=== PATIENT | female | born 1970 | race Two or more races ===

== ENCOUNTER → 2024-04-02 | Outpatient (CLI) | payer MEDICAID, SELFPAY ==
--- NOTE | 2024-04-02 | XR_ITS ---
Examination: Breast ultrasound, unilateral, right complete Date and time of exam: April 02, 2024 1211 hours INDICATIONS: Mammogram March 15, 2024 16 mm nodule 12:00 position right breast staining sensation in the right breast 2 months Technique: Real-time melgoza scale ultrasonographic imaging performed right breast including all 4 quadrants as well as nipple retroareolar and axillary region. Findings: 12:00 oval mass circumscribed 8 x 5 x 8 mm IMPRESSION: BI-RADS Category 3: Probably benign findings Recommend 1 additional 6 month right breast sonogram follow-up to document stability of 12:00 nodule described above
--- NOTE | 2024-04-02 | XR_ITS ---
Examination: Diagnostic digital mammography, unilateral, right Computer aided detection 3-D breast Tomosynthesis, unilateral Date and time of exam: April 02, 2024 1244 hours INDICATIONS: Mammogram March 15, 2024 16 mm nodule 12:00 position right breast Technique: Nonmagnified MLO, CC views of the right breast have been obtained, reconstructed from 3-D Tomosynthesis images. R2 computer aided detection program utilized for evaluation of suspicious masses and/or abnormal calcifications. 3-D Tomosynthesis images obtained. Findings: The breast is heterogeneously dense, which may obscure small masses 10 mm nodule is confirmed 12:00 position right breast Impression: BI-RADS category : Probably benign findings One additional 6 month right mammogram follow-up is needed to document stability of 12:00 nodule right breast
== END | disposition home or self-care (01) ==
PROVIDERS: PCP Nurse Practitioner Family; Referring Provider Nurse Practitioner Family; Visit Provider Nurse Practitioner Family
DX: R92.8 Other abnormal and inconclusive findings on diagnostic imaging of breast (principal); N63.10 Unspecified lump in the right breast, unspecified quadrant; N63.15 Unspecified lump in the right breast, overlapping quadrants
CPT/HCPCS: 76641; 77061; 77065; G0279

== ENCOUNTER 2024-10-17 21:45 | Emergency (ER) | payer MEDICAID, SELFPAY ==
[2024-10-17 21:48] VITALS: BMI 30.2
[2024-10-17 22:07] VITALS: BP 140/85; PULSE 68; RESP 18; TEMP 36.7; O2SAT 97
--- NOTE | 2024-10-17 22:59 | EDNOTE_ITS ---
ED Abdominal Pain RME/HPI General Chief Complaint: Abdominal Pain Stated complaint: UPPER ABD PAIN AND BURNING, NAUSEA, DIZZY, WEAK Arrival date/time: 10/17/24 21:45 RME / HPI RME / HPI narrative: Dr. Devlin?s Main ED Evaluation: 53yo female presents to the ED for a chief complaint of epigastric pain x 2 weeks. Patient states her pain radiates up to her chest and throat, reporting she has experienced similar symptoms in the past and that it's worsened over the last couple of days. Patient reports associated nausea and dizziness. She also complains of having decreased appetite due to her pain. Patient states she took ibuprofen at 1600 without any improvement of symptoms, so she came in for evaluation. Patient denies any vomiting, fever, chills, UTI symptoms or any other associated symptoms. Denies any previous abdominal surgeries. Related Data Previous Rx's ?Medication ?Instructions ?Recorded omeprazole 20 mg capsule,delayed 20 mg PO QDAY #30 cap s 10/18/24 release Allergies Allergy/AdvReac Type Severity Reaction Status Date / Time Penicillins Allergy Severe Rash Verified 10/17/24 21:47 Review of Systems Review of Systems Systems Reviewed: All systems reviewed, normal except as documented Past Medical History Past Medical History CARDIAC: Positive Hypercholesterolemia; Negative Cardiac Disorders or Congestive Heart Failure RESPIRATORY: Negative Chronic Obstructive Pulmonary Disease (COPD) or Asthma GASTROINTESTINAL: Positive Pancreatitis GENITOURINARY: Negative Renal Disease ENDOCRINE: Negative Diabetes Mellitus Type 1 or Diabetes Mellitus Type 2 HEMATOLOGIC: Negative Sickle Cell Disease Social History SMOKING STATUS: Never smoker SUBSTANCE USE: does not use ED Exam Narrative Physical exam: GENERAL APPEARANCE: alert and oriented x 4, well-developed, well-nourished, no acute distress VITALS: All vitals were reviewed and the pulse ox is 97% on room air, which is normal according to my interpretation. HEENT: Normocephalic, atraumatic; pupils equal, round, reactive to light; EOMI; mucous membranes pink, moist; oropharynx clear NECK: Supple LUNGS: CTABL; no wheezes, no rales, no rhonchi HEART: Regular rate, regular rhythm; normal S1, S2; no murmurs ABDOMEN: non distended; normal BS; soft, no tenderness, no guarding, no rebound; no masses, no organomegaly, no hernia BACK: no CVA tenderness EXTREMITIES: atraumatic; no edema NEUROLOGIC: awake; alert and oriented x4; cranial nerves II-XII grossly intact; no focal sensory or motor deficits PSYCHIATRIC: appropriate mood and affect SKIN: warm, dry, normal color; no rashes Course Course Course Narrative: CXR is ordered for determining the etiology of chest pain. Quality Measures none Orders Category Date Time Status Lead Java Programmer NOW Care 10/17/24 23:02 Active EKG (ED ONLY) *Do not use* NOW Care 10/17/24 23:02 Completed IV [Insert IV] NOW Care 10/17/24 23:27 Active EKG (ED Only) Stat Exams 10/17/24 23:02 Draft XR chest 1V portable Stat Exams 10/17/24 23:02 Completed B-Type Natriuretic Peptide Stat Lab 10/17/24 23:20 Completed CBC Stat Lab 10/17/24 23:20 Completed Comprehensive Metabolic Panel Stat Lab 10/17/24 23:20 Completed Lipase Stat Lab 10/17/24 23:20 Completed Magnesium Stat Lab 10/17/24 23:20 Completed Partial Thromboplastin Time Stat Lab 10/17/24 23:20 Completed Prothrombin Time with INR Stat Lab 10/17/24 23:20 Completed Troponin I Stat Lab 10/17/24 23:20 Completed Lidocaine 2% Viscous [Xylocaine 2% Viscous] Med 10/18/24 00:31 Discontinued 15 ml PO X1 ONE Morphine Inj Med 10/17/24 23:04 Discontinued 5 mg IVP X1 ONE Ondansetron Inj [Zofran Inj] Med 10/17/24 23:04 Discontinued 4 mg IVP X1 ONE Sodium Chloride 0.9% 1000 ml [Ns] 1,000 ml Med 10/17/24 23:04 Discontinued IV 999 mls/hr Sodium Chloride 0.9% 1000 ml [Ns] 1,000 ml Med 10/17/24 23:04 Discontinued IV 999 mls/hr mg Hyd/Al Hyd/Carole Susp [Maalox Susp] Med 10/18/24 00:31 Discontinued 30 ml PO X1 ONE Vital Signs Vital signs: Vital Signs Temperature 98.0 F 10/17/24 22:07 Pulse Rate 68 10/17/24 22:07 Respiratory Rate 18 10/17/24 22:07 Blood Pressure 140/85 H 10/17/24 22:07 Pulse Oximetry (%) 97 10/17/24 22:07 Oxygen Delivery Method Room Air 10/17/24 22:07 Abdominal Pain MDM MDM Narrative MDM Narrative:: Scribe Attestation: 10/17/24 Cynthia Lopez am scribing for and in the presence of Dr. Devlin. Patient data External records reviewed:: [facility] previous records (Per chart review, patient was admitted here on 03/18/20 for abdominal pain.) Clinical information provided by:: patient Social determinants that could affect healthcare access:: none Patient has the following chronic illnesses:: HLD How is presenting disease/condition affected by chronic disease/condition?: uneffected by Evaluation data The following diagnostics were reviewed and interpreted by me:: lab results, radiology exam(s) and EKG tracing(s) Lab and/or radiology exams considered but not ordered:: none Interpretation Summary: CBC normal, PT/INR/PTT normal, Glucose 181, BNP normal, Troponin normal, Lipase normal. EKG done at 2317, borderline bradycardia, rate of 56, mild IVCD, diffuse low voltage, incomplete RBBB, no STEMI, according to my interpretation. [place] [facility] Report Signed Patient: SEBASTIÁN BRITT. Record#: [id number] Birthdate: 1970 Age/Sex: 53 / F Location: [facility] Attending Dr: Ordering Physician: Corrie Devlin MD Date of Service: 10/17/24 Procedure(s): XR chest 1V portable Accession Number(s): [id number] cc: Dom Suresh MD; Sandra Mccallum STATION SUPERVISOR; Corrie Devlin MD~ Examination: AP chest single view TECHNIQUE: AP portable upright chest single view Date and time: October 17, 2024 1126 hours INDICATIONS: Chest pain today. FINDINGS: Reduced inspiratory effort Normal heart size No pneumonia or pulmonary edema IMPRESSION: No active disease Dictated By: Dom Suresh MD Signed By: <Electronically signed by Dom Suresh MD in OV> 10/17/24 0845 Medications / Prescriptions Medications or Prescriptions considered but not ordered:: none Medication administrations:: Medication Administration History Discontinued Medications Al Hydrox/Mg Hydrox/Simethicone (Mg Hyd/Al Hyd/Carole (Maalox Reg) Susp 30 Ml Udc) 30 ml PO X1 ONE Stop: 10/18/24 00:32 Last Admin: 10/18/24 00:48 Dose: 30 ml Documented By: CVL Sodium Chloride (Ns) 1,000 mls @ 999 mls/hr IV .Q1H1M ONE Stop: 10/18/24 00:04 Last Infusion: 10/18/24 00:44 Dose: Infused Documented By: Admin: 10/17/24 23:37 Dose: 999 mls/hr Documented By: CVL Sodium Chloride (Ns) 1,000 mls @ 999 mls/hr IV .Q1H1M ONE Stop: 10/18/24 00:04 Last Admin: 10/18/24 00:47 Dose: 999 mls/hr Documented By: CVL Lidocaine HCl (Lidocaine Viscous 2% 15 Ml Udc) 15 ml PO X1 ONE Stop: 10/18/24 00:32 Last Admin: 10/18/24 00:48 Dose: 15 ml Documented By: CVL Morphine Sulfate (Morphine Sulf Inj 10 Mg/Ml Vial) 5 mg IVP X1 ONE Stop: 10/17/24 23:05 Last Admin: 10/17/24 23:38 Dose: 5 mg Documented By: CVL Ondansetron HCl (Ondansetron Inj 2 Mg/Ml Inj 2 Ml) 4 mg IVP X1 ONE Stop: 10/17/24 23:05 Last Admin: 10/17/24 23:37 Dose: 4 mg Documented By: CVL see above Consultations Consultation(s) initiated? (list below): No Diagnosis Differential diagnosis abdominal pain: diverticulitis, pancreatitis and other (gastritis) Most likely diagnosis given after review of the tests above:: see clinical impression below Admission Indicated Admission indicated?: not indicated Admission Request Was there a request for admission?: No Disposition Plan Disposition Plan: Discharge Discharge Attestation Discharge Attestation: The patient and all family members were given an opportunity to ask questions and understood the discharge instructions. Discharge instructions specifically effects, indications for sooner follow up or return to the emergency department, and the expected course of current diagnosis. Patient condition: Stable Discharge Plan Plan Patient Disposition: HOME (Self Care) Prescriptions/Referrals Prescriptions/Med Rec: New omeprazole 20 mg capsule,delayed release(DR/EC) 20 mg PO QDAY Qty: 30 0RF Referrals: Mccallum,Sandra, STATION SUPERVISOR [Primary Care Provider] - In 1 week Problem List Clinical Impression: Gastritis Patient/Caregiver Discharge Instructions Education Materials: ED Gastritis (Adult) Print Language: Cymraes Stand Alone Forms: Rosalie Award Info., Patient Portal Info Letter
--- NOTE | 2024-10-17 23:02 | EKG_ITS ---
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1970 Requested By: Corrie Madrid Order Number: [id number] Reading MD: Corrie Madrid Measurements Intervals [place] Rate: 56 P: 34 NC: 193 QRS: -12 QRSD: 114 T: 18 QT: 402 QTc: 390 Interpretive Statements SINUS BRADYCARDIA LOW QRS VOLTAGE IN PRECORDIAL LEADS [QRS DEFLECTION < 1.0 mV IN CHEST LEADS] INCOMPLETE RIGHT BUNDLE BRANCH BLOCK [90+ ms QRS DURATION, TERMINAL R IN V1/V2, 40+ ms S IN I/aVL/V4/V5/V6] POSSIBLE ANTERIOR MYOCARDIAL INFARCTION , PROBABLY OLD [30 ms Q WAVE IN V3/V4, OR R < 0.2 mV IN V4] Compared to ECG 10/31/2023 02:27:13 Myocardial infarct finding now present Sinus rhythm no longer present /store/S0/[id number]/ecg/[id number].pdf
--- NOTE | 2024-10-17 23:02 | XR_ITS ---
Examination: AP chest single view TECHNIQUE: AP portable upright chest single view Date and time: October 17, 2024 1126 hours INDICATIONS: Chest pain today. FINDINGS: Reduced inspiratory effort Normal heart size No pneumonia or pulmonary edema IMPRESSION: No active disease
[2024-10-17] MEDS: SODIUM CHLORIDE 0.9% 1000 ML 1,000 ML 999 ML IV (23:37)
[2024-10-17] MEDS: ONDANSETRON INJ 2 MG/ML INJ 2 ML 4 MG IVP (23:37)
[2024-10-17] MEDS: MORPHINE SULF INJ 10 MG/ML VIAL 5 MG IVP (23:38)
[2024-10-17 23:42] LABS: Basophils # (Auto) 0.1 Thou/mm3 (0.0-0.2); Basophils % (Auto) 1 % (0-2.5); Eosinophils # (Auto) 0.2 Thou/mm3 (0.0-0.5); Eosinophils % (Auto) 2 % (0-10); Hematocrit 39.8 % (36.0-46.0); Hemoglobin 13.6 g/dL (12.0-16.0); Immature Granulocytes % (Auto) 0 % (0-0); Immature Granulocytes Auto 0.03 Thou/mm3 (0.00-0.00); Lymphocytes # (Auto) 2.4 Thou/mm3 (1.0-4.8); Lymphocytes % (Auto) 23 % (10-50); Mean Corpuscular HGB Conc 34.2 g/dl (31.0-37.0); Mean Corpuscular Hemoglobin 27.7 pg (25.0-35.0); Mean Corpuscular Volume 81 fL (80-100); Monocytes # (Auto) 0.6 Thou/mm3 (0.0-0.8); Monocytes % (Auto) 6 % (0-12); Neutrophils # (Auto) 7.1 Thou/mm3 (1.8-7.7); Neutrophils % (Auto) 68 % (37-80); Nucleated Red Blood Cell % 0 /100 WBC (0); Platelet Count 226 Thou/mm3 (140-440); Red Blood Count 4.91 Miln/mm3 (4.00-5.20); White Blood Count 10.4 Thou/mm3 (3.6-11.0)
[2024-10-17 23:51] LABS: Partial Thromboplastin Time 24.1 Seconds (22.0-36.0); Prothrombin Time 10.6 Seconds (9.0-12.2)
[2024-10-17 23:59] LABS: Alanine Aminotransferase 23 U/L (10-49); Albumin, Serum 4.3 gm/dL (3.5-5.0); Albumin/Globulin Ratio 1.9 (1.2-2.2); Alkaline Phosphatase 66 U/L (46-116); Anion Gap 11 (7-16); Aspartate Amino Transferase 17 U/L (0-34); BUN/Creatinine Ratio 20 Ratio (12-20); Bilirubin,Total 0.5 mg/dL (0.3-1.2); Blood Urea Nitrogen 14 mg/dL (9-23); Calcium 9.1 mg/dL (8.3-10.6); Calcium (Corrected) 9.1 mg/dL (8.5-10.1); Carbon Dioxide 23.7 mMol/L (20.0-31.0); Chloride 105 mMol/L (98-107); Creatinine (Component) 0.7 mg/dL (0.6-1.3); Estimated Creatinine Clearance 70.4 mL/min (>60); Globulin 2.3 gm/dL (2.3-3.5); Glucose 181 mg/dL (74-106); Lipase 36 U/L (12-53); Osmolality,Calculated 284 (275-295); Potassium 4.1 mMol/L (3.4-5.1); Sodium 140 mMol/L (136-145); Total Protein 6.6 gm/dL (5.7-8.2); Troponin I < 0.002 ng/mL (0.0-0.045); eGFR > 60 See Note
[2024-10-18] LABS: B-Type Natriuretic Peptide < 20 pg/mL (0-100)
[2024-10-18] MEDS: SODIUM CHLORIDE 0.9% 1000 ML 1,000 ML 999 ML IV (00:47)
[2024-10-18] MEDS: MG HYD/AL HYD/SIME (Maalox Reg) SUSP 30 ML UDC PO (00:48)
[2024-10-18] MEDS: LIDOCAINE VISCOUS 2% 15 ML UDC PO (00:48)
[2024-10-18 01:46] VITALS: PULSE 63; RESP 18; O2SAT 97
== END 2024-10-18 01:47 | disposition home or self-care (01) ==
PROVIDERS: Emergency Provider Emergency Medicine; PCP Nurse Practitioner Family
DX: K29.70 Gastritis, unspecified, without bleeding (principal); I45.10 Unspecified right bundle-branch block; R00.1 Bradycardia, unspecified; R42 Dizziness and giddiness
CPT/HCPCS: 36415; 71045; 80053; 83690; 83735; 83880; 84484; 85025; 85610; 85730; 93005; 96361; 96374; 96375; 99284; J2270; J2405; J3490; J7030; A9270

== ENCOUNTER 2024-10-18 21:40 | Emergency (ER) | payer MEDICAID, SELFPAY ==
[2024-10-18 21:41] VITALS: BMI 29.4
[2024-10-18 21:53] VITALS: BP 136/87; PULSE 65; RESP 20; TEMP 37.3; O2SAT 97
--- NOTE | 2024-10-18 22:07 | EDRME_ITS ---
Rapid Medical Screening Exam E Arrival date/time: 10/18/24 21:40 53F with history of pancreatitis presents to ED with 2 weeks of upper ab pain and N/V. 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 Chief Complaint: Abdominal Pain Vital signs: Vital Signs Temperature 99.2 F 10/18/24 21:53 Pulse Rate 65 10/18/24 21:53 Respiratory Rate 20 10/18/24 21:53 Blood Pressure 136/87 H 10/18/24 21:53 Pulse Oximetry (%) 97 10/18/24 21:53 Oxygen Delivery Method Room Air 10/18/24 21:53
--- NOTE | 2024-10-18 22:07 | XR_ITS ---
Examination: CT abdomen with intravenous contrast CT pelvis with intravenous contrast 2-D coronal reconstructions 2-D sagittal reconstructions Date and time of exam:October 19, 2024 0229 hours INDICATIONS: Urinary retention abdominal pain today COMPARISON: March 18, 2020. CTDI: vol (mGy) 9.9 DLP: (mGycm) 556 Technique: Multiple axial sections of the abdomen and pelvis have been obtained. 64 slice high-resolution scanner used. 3 mm axial sections have been obtained, post intravenous injection 60 cc Isovue 370 2-D sagittal, coronal reconstructions obtained. Low dose protocols were performed. One or more of the following dose reduction techniques were used; automated exposure control, adjustment of the mA and/or KV according to patient size, use of iterative reconstruction technique. Findings: Minimal bilateral pleural disease Atelectasis in the lower lung zones Fatty infiltration throughout the liver Thickening of the gastric mucosa and marked thickening and edema of the duodenum Contracted gallbladder with gallstones Enlarged common bile duct 4 mm with smaller areas of radiodensity The pancreatic head appears mildly prominent axial image 92, AP dimension 33 mm No hydronephrosis No bowel obstruction Normal appendix No diverticulitis Mild free fluid in the pelvis Urinary bladder intact IMPRESSION: Gastritis active peptic disease duodenum pattern Cholelithiasis Extrahepatic biliary tract dilatation with possible stones in the common bile duct, prominent pancreatic head, recommend MRCP follow-up Free fluid in the pelvis, recommend pelvic sonography follow-up
--- NOTE | 2024-10-18 22:07 | XR_ITS ---
Examination: Abdomen sonogram, Limited Date and time of exam: October 18, 2024 at 11:21 PM INDICATIONS: Epigastric pain beginning 5 days ago Technique: Real-time melgoza scale transabdominal sonographic images of the upper abdomen obtained. Findings: Contracted gallbladder No gallstones Gallbladder wall 0.4 cm Common bile duct 0.7 cm Pancreatic head 3.0 cm Liver 14.2 cm with mass structure medial to the gallbladder 2.4 x 2.8 x 3.2 cm Normal hepatopedal portal venous flow Patent IVC IMPRESSION: Repeat the gallbladder portion of the study with fasting Mildly dilated common bile duct Recommend CT abdomen and pelvis post intravenous contrast follow-up to exclude mass in the liver versus pancreas
[2024-10-18 23:02] LABS: Lactate (Lactic Acid) 0.9 mMol/L (0.4-2.0)
[2024-10-18 23:07] LABS: Basophils % (Auto) 0 % (0-2.5); Eosinophils # (Auto) 0.2 Thou/mm3 (0.0-0.5); Eosinophils % (Auto) 2 % (0-10); Hematocrit 40.1 % (36.0-46.0); Hemoglobin 13.4 g/dL (12.0-16.0); Immature Granulocytes % (Auto) 0 % (0-0); Immature Granulocytes Auto 0.02 Thou/mm3 (0.00-0.00); Lymphocytes % (Auto) 22 % (10-50); Mean Corpuscular HGB Conc 33.4 g/dl (31.0-37.0); Mean Corpuscular Volume 84 fL (80-100); Monocytes # (Auto) 0.6 Thou/mm3 (0.0-0.8); Monocytes % (Auto) 6 % (0-12); Neutrophils # (Auto) 6.5 Thou/mm3 (1.8-7.7); Neutrophils % (Auto) 70 % (37-80); Nucleated Red Blood Cell % 0 /100 WBC (0); Platelet Count 208 Thou/mm3 (140-440); RDW Standard Deviation 43.8 fL (36.4-46.3); Red Blood Count 4.79 Miln/mm3 (4.00-5.20); White Blood Count 9.3 Thou/mm3 (3.6-11.0)
[2024-10-18 23:46] LABS: Alanine Aminotransferase 32 U/L (10-49); Albumin, Serum 4.4 gm/dL (3.5-5.0); Albumin/Globulin Ratio 2.1 (1.2-2.2); Alkaline Phosphatase 62 U/L (46-116); Anion Gap 11 (7-16); Aspartate Amino Transferase 21 U/L (0-34); BUN/Creatinine Ratio 16 Ratio (12-20); Bilirubin,Total 0.6 mg/dL (0.3-1.2); Blood Urea Nitrogen 11 mg/dL (9-23); Calcium 9.4 mg/dL (8.3-10.6); Calcium (Corrected) 9.4 mg/dL (8.5-10.1); Chloride 102 mMol/L (98-107); Creatinine (Component) 0.7 mg/dL (0.6-1.3); Estimated Creatinine Clearance 69.4 mL/min (>60); Globulin 2.1 gm/dL (2.3-3.5); Glucose 203 mg/dL (74-106); Lipase 32 U/L (12-53); Osmolality,Calculated 275 (275-295); Potassium 3.7 mMol/L (3.4-5.1); Procalcitonin 0.07 ng/ml (0.0-0.49); Sodium 135 mMol/L (136-145); Total Protein 6.5 gm/dL (5.7-8.2); eGFR > 60 See Note
[2024-10-19] VITALS (8 sets, daily range): BP systolic 100–132; BP diastolic 62–77; PULSE 56–68; RESP 16–18; TEMP 36.6–36.9; O2SAT 93–98
--- NOTE | 2024-10-19 | XR_ITS ---
MRI abdomen, without contrast. MRCP Date and time of exam: October 19, 2024 1125 hrs. Indications: Abdominal pain nausea vomiting this week Technique: Multiple axial and coronal images of the abdomen have been obtained with the Siemens 1.5T MRI scanner. Images obtained included T1 weighted transverse images, T2-weighted transverse images, T2-weighted transverse images fat-suppressed, T2 weighted haste fat suppressed transverse images, T1 weighted images, in and out of phase images, T2-weighted coronal images, breath hold, T2 weighted haze coronal images as well as T2 weighted coronal thick slab images, MRCP. Findings: No focal liver lesions Gallbladder is not diagnostically visualized. Common hepatic duct is enlarged but no definite stones in the common hepatic duct or common bile duct Spleen is not enlarged. Negative for pancreatitis. No ascites Aorta normal size Impression: Common hepatic duct is enlarged but no definite common hepatic common bile duct stones
[2024-10-19] MEDS: LIDOCAINE VISCOUS 2% 15 ML UDC PO (00:12)
[2024-10-19] MEDS: MORPHINE SULF INJ 10 MG/ML VIAL 5 MG IVP (00:12)
[2024-10-19] MEDS: MG HYD/AL HYD/SIME (Maalox Reg) SUSP 30 ML UDC PO (00:12)
[2024-10-19] MEDS: ONDANSETRON INJ 2 MG/ML INJ 2 ML 4 MG IVP (00:12)
--- NOTE | 2024-10-19 01:08 | PRELIM_ITS ---
Gallbladder ultrasound. October 18, 2024 2322 hours Clinical history: RUQ/epigastric pain. No prior study is available for comparison. Findings: The liver appears heterogeneous with increased echogenicity. No intrahepatic biliary ductal dilatation. The main portal vein is patent. There is a complex mass posteromedial to the gallbladder, measuring 2.9 x 2.8 x 3.2 cm. The gallbladder is contracted with apparent wall thickening, measuring 3.6 mm. No gallbladder calculus or pericholecystic fluid is demonstrated. Sonographic Saldaña sign is negative. Please correlate with any pain medication. The common bile duct is mildly dilated at 7 mm. The visualized pancreas appears heterogeneous. The visualized inferior vena cava is patent. Impression: Contracted gallbladder with apparent wall thickening, possibly due to inadequate fasting. Consider repeat examination with adequate fasting or suggest further evaluation with HIDA scan, as clinically indicated. Mildly dilated common bile duct. No ductal calculus is demonstrated sonographically. Recommend clinical correlation and further evaluation with MRCP, if clinically indicated. Findings suggestive of hepatic parenchymal disease. Heterogeneous pancreas, the possibility of pancreatitis cannot be excluded. Complex mass posteromedial to the gallbladder, which may be of pancreatic or hepatic origin. Recommend clinical correlation and further evaluation with CT Abdomen and Pelvis . Report Electronically Signed By: Mandeep Moffett 10/19/2024 1:08:34 AM [EST]
[2024-10-19] MEDS: SUCRALFATE SUSP 1 GM/10 ML UDC PO (01:40)
--- NOTE | 2024-10-19 05:47 | PD.EDABDPN ---
ED Abdominal Pain RME/HPI General Chief Complaint: Abdominal Pain Stated complaint: UPPER ABD PAIN AND DIZZINESS Time seen by provider: 10/18/24 23:11 Arrival date/time: 10/18/24 21:40 RME / HPI RME / HPI narrative: 10/18/24 21:40 53F with history of pancreatitis presents to ED with 2 weeks of upper ab pain and N/V. 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 DR DEVLIN MAIN ED EVALUATION: 53 y/o female with Hx of Hypercholesterolemia and Pancreatitis presents to ED c/o epgastric abdominal pain x 2 weeks. Patient denies vomiting or any other associated symptoms or aggravating factors. No modifying factors, no radiation, no migration. No other concerns or complaints expressed at this time. Related Data Previous Rx's ?Medication ?Instructions ?Recorded omeprazole 20 mg capsule,delayed 20 mg PO QDAY #30 caps 10/18/24 release Allergies Allergy/AdvReac Type Severity Reaction Status Date / Time Penicillins Allergy Severe Rash Verified 10/18/24 21:41 Review of Systems Review of Systems Systems Reviewed: All systems reviewed, normal except as documented Past Medical History Past Medical History CARDIAC: Positive Hypercholesterolemia GASTROINTESTINAL: Positive Pancreatitis ED Exam Narrative Physical exam: GENERAL APPEARANCE: alert and oriented x 4, well-developed, well-nourished, no acute distress VITALS: All vitals were reviewed and the pulse ox is % on room air, which is normal according to my interpretation. HEENT: Normocephalic, atraumatic; pupils equal, round, reactive to light; EOMI; mucous membranes pink, moist; oropharynx clear NECK: Supple LUNGS: CTABL; no wheezes, no rales, no rhonchi HEART: Regular rate, regular rhythm; normal S1, S2; no murmurs ABDOMEN: non distended; normal BS; soft, epigastric abdominal tenderness, no guarding, no rebound; no masses, no organomegaly, no hernia BACK: no CVA tenderness EXTREMITIES: atraumatic; no edema NEUROLOGIC: awake; alert and oriented x4; cranial nerves II-XII grossly intact; no focal sensory or motor deficits PSYCHIATRIC: appropriate mood and affect SKIN: warm, dry, normal color; no rashes Course Quality Measures none Orders Category Date Time Status CT Screening NOW Care 10/18/24 22:07 Active Insert IV NOW Care 10/18/24 22:[address] abdomen pelvis w con Stat Exams 10/18/24 22:07 Taken US gall bladder Stat Exams 10/18/24 22:07 Taken CBC Stat Lab 10/18/24 22:36 Completed CMP [Comprehensive Metabolic Panel] Stat Lab 10/18/24 22:36 Completed Lactate (Lactic Acid) Stat Lab 10/18/24 22:36 Completed Lipase Stat Lab 10/18/24 22:36 Completed Procalcitonin Stat Lab 10/18/24 22:36 Completed Lidocaine 2% Viscous [Xylocaine 2% Viscous] Med 10/18/24 23:51 Discontinued 15 ml PO X1 ONE Morphine Inj Med 10/18/24 23:53 Discontinued 5 mg IVP X1 ONE Ondansetron Inj [Zofran Inj] Med 10/18/24 23:53 Discontinued 4 mg IVP X1 ONE Sucralfate Susp [Carafate Susp] Med 10/18/24 23:51 Discontinued 1 gm PO X1 ONE mg Hyd/Al Hyd/Carole Susp [Maalox Susp] Med 10/18/24 23:51 Discontinued 30 ml PO X1 ONE Vital Signs Vital signs: Vital Signs Temperature 99.2 F 10/18/24 21:53 Pulse Rate 65 10/18/24 21:53 Respiratory Rate 20 10/18/24 21:53 Blood Pressure 136/87 H 10/18/24 21:53 Pulse Oximetry (%) 97 10/18/24 21:53 Oxygen Delivery Method Room Air 10/18/24 21:53 Abdominal Pain MDM MDM Narrative MDM Narrative:: Scribe Attestation: Maite Anders am scribing for and in the presence of Dr. Devlin. Provider Notation: Although this document has been carefully reviewed, there may still be some phonetic and other typographical errors.? These errors are purely grammatical due to imperfections in the software program and should not be construed in any way to? compromise the substance of the patient's medical care during this visit. Patient data External records reviewed:: [facility] previous records (Reviewed prior ED records from 10/17/24. Patient was seen for Gastritis.) Clinical information provided by:: patient Social determinants that could affect healthcare access:: none Patient has the following chronic illnesses:: Hypercholesterolemia, Pancreatitis How is presenting disease/condition affected by chronic disease/condition?: exacerbated by Evaluation data The following diagnostics were reviewed and interpreted by me:: lab results and radiology exam(s) Lab and/or radiology exams considered but not ordered:: None Interpretation Summary: RADIOLOGY Abdomen/Pelvis CT: Pending official radiology report. Gall Bladder US: Pending official radiology report. Medications / Prescriptions Medications or Prescriptions considered but not ordered:: None Medication administrations:: Medication Administration History Discontinued Medications Al Hydrox/Mg Hydrox/Simethicone (Mg Hyd/Al Hyd/Carole (Maalox Reg) Susp 30 Ml Udc) 30 ml PO X1 ONE Stop: 10/18/24 23:52 Last Admin: 10/19/24 00:12 Dose: 30 ml Documented By: CAROL Lidocaine HCl (Lidocaine Viscous 2% 15 Ml Udc) 15 ml PO X1 ONE Stop: 10/18/24 23:52 Last Admin: 10/19/24 00:12 Dose: 15 ml Documented By: CAROL Morphine Sulfate (Morphine Sulf Inj 10 Mg/Ml Vial) 5 mg IVP X1 ONE Stop: 10/18/24 23:54 Last Admin: 10/19/24 00:12 Dose: 5 mg Documented By: CAROL Ondansetron HCl (Ondansetron Inj 2 Mg/Ml Inj 2 Ml) 4 mg IVP X1 ONE Stop: 10/18/24 23:54 Last Admin: 10/19/24 00:12 Dose: 4 mg Documented By: CAROL Sucralfate (Sucralfate Susp 1 Gm/10 Ml Udc) 1 gm PO X1 ONE Stop: 10/18/24 23:52 Last Admin: 10/19/24 01:40 Dose: 1 gm Documented By: CAROL See above if any Consultations Consultation(s) initiated? (list below): No Diagnosis Differential diagnosis abdominal pain: abdominal pain, diverticulitis, gastroenteritis and pancreatitis Most likely diagnosis given after review of the tests above:: epigastric abdominal pain Admission Indicated Admission indicated?: not indicated Explain why admission is indicated or not indicated:: Pending radiology report. Signed-out to Dr. Adhikari. Admission Request Was there a request for admission?: No Disposition Plan Disposition Plan: other (specify) (Sign-out to Dr. Adhikari at 6 AM.) Discharge Plan Prescriptions/Referrals Prescriptions/Med Rec: No Action omeprazole 20 mg capsule,delayed release(DR/EC) 20 mg PO QDAY Qty: 30 0RF Referrals: Sandra Mccallum SCREEN PRINTING LOADER UNLOADER [Primary Care Provider] - In 1 week Problem List Clinical Impression: Epigastric abdominal pain Patient/Caregiver Discharge Instructions Print Language: Welsh
--- NOTE | 2024-10-19 06:32 | EDNOTE_ITS ---
Emergency Room Addendum Addendum Narrative: 0600: Care assumed from Dr. Devlin, the previous shift emergency physician. Past medical, surgical, social and family history reviewed. Vitals and home medications reviewed. I will assume the care of the patient at this time, pending diagnostic tests and final disposition. Please refer to the emergency department record for history and examination from initial visit.? Physical exam by me shows patient has some epigastric tenderness. 1700: Patient remains clinically stable throughout the emergency department visit. Re-assessment at the time of disposition demonstrates that the patient is in no acute distress. We reviewed all the results, analysis, and treatment plans. Patient is amenable to discharge. Strict return precautions were outlined. Patient was discharged in stable condition. Diagnoses: - Duodenitis Results Objective Laboratory: Laboratory Last Values WBC 9.3 Thou/mm3 (3.6-11.0) 10/18/24 22:36 RBC 4.79 Miln/mm3 (4.00-5.20) 10/18/24 22:36 Hgb 13.4 g/dL (12.0-16.0) 10/18/24 22:36 Hct 40.1 % (36.0-46.0) 10/18/24 22:36 MCV 84 fL (80-100) 10/18/24 22:36 MCH 28.0 pg (25.0-35.0) 10/18/24 22:36 MCHC 33.4 g/dl (31.0-37.0) 10/18/24 22:36 RDW Std Deviation 43.8 fL (36.4-46.3) 10/18/24 22:36 Plt Count 208 Thou/mm3 (140-440) 10/18/24 22:36 Neut % (Auto) 70 % (37-80) 10/18/24 22:36 Lymph % (Auto) 22 % (10-50) 10/18/24 22:36 [place] % (Auto) 6 % (0-12) 10/18/24 22:36 Eos % (Auto) 2 % (0-10) 10/18/24 22:36 Baso % (Auto) 0 % (0-2.5) 10/18/24 22:36 Neut # (Auto) 6.5 Thou/mm3 (1.8-7.7) 10/18/24 22:36 Lymph # (Auto) 2.0 Thou/mm3 (1.0-4.8) 10/18/24 22:36 [place] # (Auto) 0.6 Thou/mm3 (0.0-0.8) 10/18/24 22:36 Eos # (Auto) 0.2 Thou/mm3 (0.0-0.5) 10/18/24 22:36 Baso # (Auto) 0.0 Thou/mm3 (0.0-0.2) 10/18/24 22:36 Immature Gran # (Auto) 0.02 Thou/mm3 (0.00-0.00) H 10/18/24 22:36 Absolute Nucleated RBC 0.00 Thou/mm3 (0.00-0.00) 10/18/24 22:36 Immature Gran % 0 % (0-0) 10/18/24 22:36 Nucleated RBC % 0 /100 WBC (0) 10/18/24 22:36 Sodium 135 mMol/L (136-145) L 10/18/24 22:36 Potassium 3.7 mMol/L (3.4-5.1) 10/18/24 22:36 Chloride 102 mMol/L (98-107) 10/18/24 22:36 Carbon Dioxide 22.0 mMol/L (20.0-31.0) 10/18/24 22:36 Anion Gap 11 (7-16) 10/18/24 22:36 BUN 11 mg/dL (9-23) 10/18/24 22:36 Creatinine 0.7 mg/dL (0.6-1.3) 10/18/24 22:36 Estim Creat Clear Calc 69.4 mL/min (>60) 10/18/24 22:36 eGFR > 60 See Note (60-) 10/18/24 22:36 BUN/Creatinine Ratio 16 Ratio (12-20) 10/18/24 22:36 Glucose 203 mg/dL (74-106) H 10/18/24 22:36 Calculated Osmolality 275 (275-295) 10/18/24 22:36 Lactic Acid 0.9 mMol/L (0.4-2.0) 10/18/24 22:36 Calcium 9.4 mg/dL (8.3-10.6) 10/18/24 22:36 Corrected Calcium 9.4 mg/dL (8.5-10.1) 10/18/24 22:36 Total Bilirubin 0.6 mg/dL (0.3-1.2) 10/18/24 22:36 AST 21 U/L (0-34) 10/18/24 22:36 ALT 32 U/L (10-49) 10/18/24 22:36 Alkaline Phosphatase 62 U/L (46-116) 10/18/24 22:36 Total Protein 6.5 gm/dL (5.7-8.2) 10/18/24 22:36 Albumin 4.4 gm/dL (3.5-5.0) 10/18/24 22:36 Globulin 2.1 gm/dL (2.3-3.5) L 10/18/24 22:36 Albumin/Globulin Ratio 2.1 (1.2-2.2) 10/18/24 22:36 Lipase 32 U/L (12-53) 10/18/24 22:36 Procalcitonin 0.07 ng/ml (0.0-0.49) 10/18/24 22:36 Imaging: Procedure(s): US gall bladder Accession Number(s): [id number] cc: Dom Suresh MD; Sandra Mccallum NP; Ian Fried PA-C~ Examination: Abdomen sonogram, Limited Date and time of exam: October 18, 2024 at 11:21 PM INDICATIONS: Epigastric pain beginning 5 days ago Technique: Real-time melgoza scale transabdominal sonographic images of the upper abdomen obtained. Findings: Contracted gallbladder No gallstones Gallbladder wall 0.4 cm Common bile duct 0.7 cm Pancreatic head 3.0 cm Liver 14.2 cm with mass structure medial to the gallbladder 2.4 x 2.8 x 3.2 cm Normal hepatopedal portal venous flow Patent IVC IMPRESSION: Repeat the gallbladder portion of the study with fasting Mildly dilated common bile duct Recommend CT abdomen and pelvis post intravenous contrast follow-up to exclude mass in the liver versus pancreas Dictated By: Dom Suresh MD Procedure(s): CT abdomen pelvis w con Accession Number(s): [id number] cc: Dom Suresh MD; Sandra Mccallum NP; Ian Fried PA-C~ Examination: CT abdomen with intravenous contrast CT pelvis with intravenous contrast 2-D coronal reconstructions 2-D sagittal reconstructions Date and time of exam:October 19, 2024 0229 hours INDICATIONS: Urinary retention abdominal pain today COMPARISON: March 18, 2020. CTDI: vol (mGy) 9.9 DLP: (mGycm) 556 Technique: Multiple axial sections of the abdomen and pelvis have been obtained. 64 slice high-resolution scanner used. 3 mm axial sections have been obtained, post intravenous injection 60 cc Isovue 370 2-D sagittal, coronal reconstructions obtained. Low dose protocols were performed. One or more of the following dose reduction techniques were used; automated exposure control, adjustment of the mA and/or KV according to patient size, use of iterative reconstruction technique. Findings: Minimal bilateral pleural disease Atelectasis in the lower lung zones Fatty infiltration throughout the liver Thickening of the gastric mucosa and marked thickening and edema of the duodenum Contracted gallbladder with gallstones Enlarged common bile duct 4 mm with smaller areas of radiodensity The pancreatic head appears mildly prominent axial image 92, AP dimension 33 mm No hydronephrosis No bowel obstruction Normal appendix No diverticulitis Mild free fluid in the pelvis Urinary bladder intact IMPRESSION: Gastritis active peptic disease duodenum pattern Cholelithiasis Extrahepatic biliary tract dilatation with possible stones in the common bile duct, prominent pancreatic head, recommend MRCP follow-up Free fluid in the pelvis, recommend pelvic sonography follow-up Dictated By: Dom Suresh MD Procedure(s): MR MRCP Accession Number(s): [id number] cc: Mu Adhikari MD; Dom Suresh MD; Sandra Mccallum NP~ MRI abdomen, without contrast. MRCP Date and time of exam: October 19, 2024 1125 hrs. Indications: Abdominal pain nausea vomiting this week Technique: Multiple axial and coronal images of the abdomen have been obtained with the Siemens 1.5T MRI scanner. Images obtained included T1 weighted transverse images, T2-weighted transverse images, T2-weighted transverse images fat-suppressed, T2 weighted haste fat suppressed transverse images, T1 weighted images, in and out of phase images, T2-weighted coronal images, breath hold, T2 weighted haze coronal images as well as T2 weighted coronal thick slab images, MRCP. Findings: No focal liver lesions Gallbladder is not diagnostically visualized. Common hepatic duct is enlarged but no definite stones in the common hepatic duct or common bile duct Spleen is not enlarged. Negative for pancreatitis. No ascites Aorta normal size Impression: Common hepatic duct is enlarged but no definite common hepatic common bile duct stones Dictated By: Dom Suresh MD
[2024-10-19] MEDS: HYDROmorphone INJ 2 MG/ML VIAL 1 MG IVP ×2 (10:42→16:09)
[2024-10-19] MEDS: PANTOPRAZOLE INJ 40 MG VIAL 80 MG IVP (10:42)
--- NOTE | 2024-10-19 16:02 | PC.NURSE ---
PATIENT STATES PAIN 9/10. INFORMED ER PROVIDER AND RECEIVED VERBAL ORDER FOR 1MG HYDROMORPHONE IV.
[2024-10-19] MEDS: MORPHINE SULF INJ 10 MG/ML VIAL 4 MG IVP (18:54)
== END 2024-10-19 19:01 | disposition home or self-care (01) ==
PROVIDERS: Physician Assistant; Emergency Provider Emergency Medicine; PCP Nurse Practitioner Family
DX: K29.80 Duodenitis without bleeding (principal); K83.8 Other specified diseases of biliary tract; K80.20 Calculus of gallbladder without cholecystitis without obstruction
CPT/HCPCS: 36415; 74177; 76705; 80053; 83605; 83690; 84145; 85025; 96374; 96375; 96376; 99285; A4649; J1171; J2270; J2405; J2470; J3490; Q9967; S8037; 74181; A9270